=== PATIENT | male | born 1985 | race Caucasian/White ===

== ENCOUNTER 2017-12-12 20:59 | Emergency (ER) | payer OTHER ==
[~2017-12-12] VITALS: Ht 180.3 cm; Wt 101.7 kg
[~2017-12-12 20:59] MED LIST: RISP2TAB35 PO; SERT50TA5 PO
[2017-12-12 21:03] VITALS: BP 140/70
[2017-12-12] MEDS ORDERED: DEXAMETHASONE 1 MG TABLET PO STA (21:23)
[2017-12-12] MEDS ORDERED: DEXAMETHASONE 4 MG TABLET ONE (21:23)
[2017-12-12] MEDS ORDERED: DEXAMETHASONE 4 MG TABLET PO STA (21:43)
== END 2017-12-12 21:45 | disposition home or self-care (01) ==
LOC: ED 21:09
DX: J02.0 Streptococcal pharyngitis (principal); J45.909 Unspecified asthma, uncomplicated; F20.9 Schizophrenia, unspecified
CPT/HCPCS: 87081; 87880; 99284

== ENCOUNTER 2019-10-23 23:51 | Emergency (ER) | payer OTHER ==
[~2019-10-23] VITALS: Ht 177.8 cm; Wt 98.8 kg
[~2019-10-23 23:51] MED LIST changes: +SERT50TA28 PO; -SERT50TA5 PO
[2019-10-23 23:59] VITALS: BP 136/92
[2019-10-24] MEDS ORDERED: AMOXICILLIN/CLAV 875-125MG TABLET PO STA (01:23)
[2019-10-24] MEDS ORDERED: DEXAMETHASONE 4 MG TABLET PO STA (01:23)
[2019-10-24] MEDS ORDERED: AMOXICILLIN/CLAV 875-125MG TABLET ONE (01:24)
[2019-10-24] MEDS ORDERED: DEXAMETHASONE 4 MG TABLET ONE (01:24)
--- NOTE | 2019-10-24 01:30 | NUR ---
Patient/Caregiver given discharge instructions and they have confirmed that they understand the instructions. Patient ambulatory with steady gait.
== END 2019-10-24 02:36 | disposition home or self-care (01) ==
LOC: ED 10-24 01:00
DX: J02.0 Streptococcal pharyngitis (principal); R50.9 Fever, unspecified; F17.210 Nicotine dependence, cigarettes, uncomplicated
CPT/HCPCS: 99283